=== PATIENT | female | born 1945 | race Two or more races ===

== ENCOUNTER 2017-06-13 09:37 | Inpatient (IN) | payer MEDICARE, OTHER ==
[~2017-06-13] VITALS: Ht 154.9 cm; Wt 62.5 kg
[2017-06-13] MEDS ORDERED: SODIUM CHLORIDE FLUSH 10ML SYR IVF ONE (10:30)
[2017-06-13 10:59] LABS: INTERNATIONAL NORMALIZED RATIO 0.99 (0.93-1.1); PROTHROMBIN TIME 10.2 Seconds (9.6-11.5)
[2017-06-13 11:03] LABS: BASOPHILS # (AUTO) 0.04 x10^3/uL (0-0.1); BASOPHILS % (AUTO) 1 % (0-1); EOSINOPHILS # (AUTO) 0.05 x10^3/uL (0-0.4); EOSINOPHILS % (AUTO) 1 % (1-7); LYMPHOCYTES # (AUTO) 1.56 x10^3/uL (1-3.4); LYMPHOCYTES % (AUTO) 24 % (22-44); MD NO; MEAN CORPUSCULAR HEMOGLOBIN 30.2 pg (27.0-34.8); MEAN CORPUSCULAR HGB CONC 32.7 g/dL (32.4-35.8); MEAN CORPUSCULAR VOLUME 92.4 fL (80-100); MEAN PLATELET VOLUME 8.3 fL (7.4-10.4); MONOCYTES # (AUTO) 0.34 x10^3/uL (0.2-0.8); MONOCYTES % (AUTO) 5 % (2-9); NEUTROPHILS # (AUTO) 4.48 x10^3/uL (1.8-6.8); NEUTROPHILS % (AUTO) 69 % (42-75); PLATELET COUNT 353 x10^3/uL (130-400); RED BLOOD COUNT 4.39 x10^6/uL (3.82-5.3); RED CELL DISTRIBUTION WIDTH 13.9 % (9.6-15.2)
[2017-06-13 11:06] LABS: TROPONIN I < 0.015 ng/mL (0.000-0.045)
[2017-06-13 11:49] LABS: ALBUMIN 3.6 g/dL (3.4-5.0); ANION GAP 7 mmol/L (5-15); CALCIUM 8.9 mg/dL (8.5-10.1); CHLORIDE 102 mmol/L (98-107)
[2017-06-13 11:50] LABS: ALANINE AMINOTRANSFERASE 16 U/L (12-78); CREATININE 0.69 mg/dL (0.55-1.02)
[2017-06-13 11:54] LABS: ALKALINE PHOSPHATASE 144 U/L (45-117); BILIRUBIN,TOTAL 0.6 mg/dL (0.2-1.0); TOTAL PROTEIN 8.1 g/dL (6.4-8.2)
[2017-06-13 12:05] LABS: MICROSCOPIC INDICATED
[2017-06-13 12:07] LABS: CULTURE INDICATED? YES
[2017-06-13] MEDS ORDERED: BISACODYL 10 MG SUPP PR PRN (14:00)
[2017-06-13] MEDS ORDERED: POLYETHYLENE GLYCOL 17 GM PACKET PO PRN (14:00)
[2017-06-13] MEDS ORDERED: hydrALAzine 20 MG/ML, 1ML IVPush PRN (14:00)
[2017-06-13] MEDS ORDERED: ACETAMINOPHEN 325 MG TABLET PO PRN (14:00)
[2017-06-13] MEDS ORDERED: DOCUSATE 100 MG CAPSULE PO PRN (14:00)
[2017-06-13] MEDS ORDERED: ENALAPRILAT 1.25 MG/ML, 2ML IVPush PRN (14:00)
[2017-06-13] MEDS ORDERED: ONDANSETRON 2MG/ML, 2ML IVPush PRN (14:00)
[2017-06-13] MEDS ORDERED: HALOPERIDOL 5 MG/ML ONE (14:16)
[2017-06-13] MEDS ORDERED: HALOPERIDOL 5 MG/ML IV ONE (14:30)
[2017-06-13] MEDS ORDERED: ENOXAPARIN 40 MG/0.4 ML SQ SCH (15:00)
[2017-06-13] MEDS ORDERED: CEFTRIAXONE PMX 1GM/50ML 50 ML IV SCH (15:00)
[2017-06-13 15:05] VITALS: BP 126/69
[2017-06-13] MEDS ORDERED: HALOPERIDOL 5 MG/ML IM ONE (15:30)
[2017-06-13] MEDS: SODIUM CHLORIDE 0.9% 1,000 ML IV SCH (16:16)
[2017-06-13 20:56] VITALS: BP 122/76
[2017-06-14 02:51] VITALS: BP 140/57
[2017-06-14] MEDS: SODIUM CHLORIDE 0.9% 1,000 ML IV SCH (04:00)
[2017-06-14 05:24] LABS: BASOPHILS # (AUTO) 0.03 x10^3/uL (0-0.1); BASOPHILS % (AUTO) 1 % (0-1); EOSINOPHILS # (AUTO) 0.09 x10^3/uL (0-0.4); EOSINOPHILS % (AUTO) 1 % (1-7); LYMPHOCYTES # (AUTO) 2.04 x10^3/uL (1-3.4); LYMPHOCYTES % (AUTO) 32 % (22-44); MD NO; MEAN CORPUSCULAR HEMOGLOBIN 30.8 pg (27.0-34.8); MEAN CORPUSCULAR HGB CONC 33.7 g/dL (32.4-35.8); MEAN CORPUSCULAR VOLUME 91.2 fL (80-100); MEAN PLATELET VOLUME 8.2 fL (7.4-10.4); MONOCYTES # (AUTO) 0.48 x10^3/uL (0.2-0.8); MONOCYTES % (AUTO) 8 % (2-9); NEUTROPHILS # (AUTO) 3.75 x10^3/uL (1.8-6.8); NEUTROPHILS % (AUTO) 59 % (42-75); PLATELET COUNT 297 x10^3/uL (130-400); RED BLOOD COUNT 3.98 x10^6/uL (3.82-5.3); RED CELL DISTRIBUTION WIDTH 13.7 % (9.6-15.2)
[2017-06-14 05:30] LABS: CHLORIDE 106 mmol/L (98-107)
[2017-06-14 05:41] LABS: ALANINE AMINOTRANSFERASE 14 U/L (12-78); ALBUMIN 3.1 g/dL (3.4-5.0); ALKALINE PHOSPHATASE 118 U/L (45-117); ANION GAP 6 mmol/L (5-15); BILIRUBIN,TOTAL 0.5 mg/dL (0.2-1.0); CALCIUM 8.8 mg/dL (8.5-10.1); CREATININE 0.73 mg/dL (0.55-1.02); TOTAL PROTEIN 7.3 g/dL (6.4-8.2)
[2017-06-14 08:30] VITALS: BP 184/92
== END 2017-06-14 12:11 | disposition left against medical advice (07) | DRG 689 ==
LOC: ED 12:39 → EDIP 13:12 → 3NE 14:48
PROVIDERS: ADMIT Internal Medicine Pulmonary Disease; ATTEND Internal Medicine Pulmonary Disease
DX: N39.0 Urinary tract infection, site not specified (principal); G93.40 Encephalopathy, unspecified; F03.90 Unspecified dementia, unspecified severity, without behavioral disturbance, psychotic disturbance, mood disturbance, and anxiety; I10 Essential (primary) hypertension
CPT/HCPCS: 36415; 70450; 71045; 80053; 81001; 82140; 83880; 84443; 84484; 85025; 85610; 87040; 87077; 87086; 87186; J0696; J1650; J0360; J1630; J7030

== ENCOUNTER 2018-11-02 15:38 | Emergency (ER) | payer OTHER, MEDICARE ==
[~2018-11-02] VITALS: Ht 160 cm; Wt 63.0 kg
[2018-11-02 15:45] VITALS: BP 112/47
--- NOTE | 2018-11-02 16:15 | NUR ---
CCU Jillian kincaid brought to BS to be sitter for pt. Pt is disoriented & requires frequent redirection back into bed. SR up x 2, bed in lowest position. Snacks/drinks provided. JORGE Savannah is attempting to contact family for further information.
--- NOTE | 2018-11-02 16:43 | NUR ---
SW was able to identify pt & has [employer] going to her house, sitter remains in room, pt cooperative.
--- NOTE | 2018-11-02 17:38 | NUR ---
Pt's @ [facility]. Spoke with him about concerns about pt's safety at home. states he works all day and has a friend look in on her 'every couple hours'. Has no other family/friend resources who can help. States she is getting worse and does want to speak with a SW prior to d/c to discuss options. Pt at this point remains in a gown & cooperative with sitter outside room.
== END 2018-11-02 18:19 | disposition home or self-care (01) ==
LOC: EDBD 15:38 → MERGE 15:38 → ED 18:00
DX: G30.1 Alzheimer's disease with late onset (principal)
CPT/HCPCS: 99283